=== PATIENT | female | born 1990 | race Two or more races ===

== ENCOUNTER 2019-06-16 20:24 | Emergency (ER) | payer BC ==
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
== END 2019-06-16 22:01 | disposition home or self-care (01) ==
LOC: ER 20:24
DX: S43.402A Unspecified sprain of left shoulder joint, initial encounter (principal); V89.2XXA Person injured in unspecified motor-vehicle accident, traffic, initial encounter; Y93.89 Activity, other specified; Y92.410 Unspecified street and highway as the place of occurrence of the external cause; Y99.8 Other external cause status